=== PATIENT | female | born 1975 | race African-American/Black ===

== ENCOUNTER 2020-04-05 00:11 | Emergency (ER) | payer OTHER ==
[~2020-04-05] VITALS: Ht 157.5 cm; Wt 63.5 kg
[2020-04-05 00:26] VITALS: BP_SYST 140
--- NOTE | 2020-04-05 00:39 | ER.PDOC ---
General Chief Complaint: SINUS INFECTION Stated Complaint: SPITTING UP BLOOD FROM SINUS INFECTION TRAVEL OUT OF US: No Time seen by MD: 00:33 Source: patient Exam Limitations: no limitations History of Present Illness Initial Comments Facial pain for 3 weeks, she has has sinusitis in the past. When she drags her nose and spits out, she sees blood occasionally. No vomiting or coughing out blood. Severity: mild Associated Symptoms: denies symptoms Allergies: Coded Allergies: hydrocodone (Verified Allergy, Intermediate, RASH, 04/17/15) Past Medical History Medical History: no pertinent history Surgical History: no surgical history Social History Alcohol Use: none Drug Use: none Review of Systems Constitutional: no symptoms reported EENTM: nose congestion Respiratory: no symptoms reported Cardiovascular: no symptoms reported Gastrointestinal: no symptoms reported Genitourinary: no symptoms reported All Other Systems: Reviewed and Negative Physical Exam General Appearance: No Apparent Distress, WD/WN EENT: tenderness (maxillary sinuses) Neck: Non-Tender, Full Range of Motion, Supple Respiratory: chest non-tender, lungs clear, normal breath sounds, no respiratory distress, no accessory muscle use CVS: reg rate & rhythm, no murmur, no gallop, pulses nml, nml capillary refill Gastrointestinal: Normal Bowel Sounds, No Organomegaly, No Pulsatile Mass, Non Tender Back: Normal Inspection, No CVA Tenderness, No Vertebral Tenderness Extremities: Normal Range of Motion, Non-Tender, Normal Inspection, No Pedal Edema 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 ER DEPART Departure Time of Disposition: 00:38 Disposition: 01 HOME, SELF-CARE Impression: Primary Impression: Acute sinusitis Condition: Stable Referrals: PCP,UNKNOWN (PCP) PRIMARY CARE PROVIDER Additional Instructions: Augmentin F/U with PCP in 5-7 days Return to ED if worsening or concerns Duration or Time Spent with Pa: 10 min Problem Qualifiers Primary Impression: Acute sinusitis Sinusitis location: maxillary Recurrence: not specified as recurrent Qualified Codes: J01.00 - Acute maxillary sinusitis, unspecified RUTH ROMERO MD Apr 05, 2020 00:39
== END 2020-04-05 00:43 | disposition home or self-care (01) ==
LOC: ER 00:11
DX: J01.90 Acute sinusitis, unspecified (principal); Z88.5 Allergy status to narcotic agent
CPT/HCPCS: 99283